=== PATIENT | male | born 1955 | race Caucasian/White ===

== ENCOUNTER 2017-08-22 15:28 | Emergency (ER) | payer BC ==
[~2017-08-22] VITALS: Ht 188 cm; Wt 93.0 kg
[2017-08-22] MEDS ORDERED: FLOMAX0.4 MG PO (15:43)
[2017-08-22] MEDS ORDERED: XANAX1 MG PO (15:43)
[2017-08-22] MEDS ORDERED: BACTRIM 400-801 EACH PO (15:44)
[2017-08-22] MEDS ORDERED: EFFEXOR XR75 MG PO (15:44)
[2017-08-22 16:19] LABS: URINE BILIRUBIN NEGATIVE (Negative); URINE BLOOD TRACE (Negative); URINE CLARITY CLEAR; URINE COLOR YELLOW; URINE GLUCOSE-RANDOM 1+ (Negative); URINE KETONES NEGATIVE (Negative); URINE LEUKOCYTES-REFLEX 1+ (Negative); URINE NITRITE-REFLEX NEGATIVE (Negative); URINE PROTEIN NEGATIVE (Negative); URINE UROBILINOGEN 0.2 E.U./dl (0.2-1.0)
[2017-08-22 16:27] LABS: BACTERIA-REFLEX 1-9 Few /HPF (None Seen); SQUAMOUS NONE SEEN /LPF (0-3); URINE RBC None Seen /HPF (0-2); WBC CLUMPS Few (None Seen)
[2017-08-22 16:28] LABS: CASTS None Seen /LPF (None Seen); CRYSTALS None Seen /LPF (None Seen); MUCUS None Seen strn/LPF (None Seen)
[2017-08-22 16:54] LABS: HEMATOCRIT 39.5 % (42.0-52.0); HEMOGLOBIN 13.5 gm/dL (14.0-18.0); MCHC 34.2 g/dL (28.0-37.0); MCV 93.4 fL (80.0-100.0); MPV 7.6 fl. (7.2-11.1); NUCLEATED RBCS 0 /100WBC; PLATELET COUNT* 106 thou/uL (150-400); RBC 4.23 mil/uL (4.50-6.00); RDW-CV 12.6 % (10.5-14.5); WBC 13.2 thou/uL (4.0-11.0)
[2017-08-22 17:06] LABS: CALCIUM 8.2 mg/dL (8.5-10.1); CREATININE 1.3 mg/dL (0.6-1.3); POTASSIUM 3.9 mmol/L (3.5-5.1)
[2017-08-22 17:10] LABS: ALBUMIN 3.4 g/dL (3.4-5.0); TOTAL BILIRUBIN 1.8 mg/dL (<0.1-1.0); TOTAL PROTEIN 6.9 g/dL (6.4-8.2)
[2017-08-22] MEDS ORDERED: PHENAZOPYRIDIN200 M2 PO (17:14)
[2017-08-22 17:28] LABS: ABSOLUTE EOSINOPHILS 0.1 thou/uL (0.0-0.7); ABSOLUTE LYMPHOCYTES 2.1 thou/uL (0.8-5.3); ABSOLUTE MONOCYTES 0.8 thou/uL (0.0-1.2); ABSOLUTE NEUTROPHILS 10.2 thou/uL (1.6-8.1)
[2017-08-22 17:29] LABS: PLATELET ESTIMATE ADEQUATE
[2017-08-22] MEDS ORDERED: HYDROCODONE-AP1 EAC6 PO (18:42)
[2017-08-22 19:09] VITALS: BP 111/68
== END 2017-08-22 19:10 | disposition home or self-care (01) ==
LOC: M.ERS 15:28
PROVIDERS: Physician Assistant
DX: N39.0 Urinary tract infection, site not specified (principal); N40.0 Benign prostatic hyperplasia without lower urinary tract symptoms; R74.8 Abnormal levels of other serum enzymes; F32.9 Major depressive disorder, single episode, unspecified; F41.9 Anxiety disorder, unspecified